=== PATIENT | female | born 1935 | race Caucasian/White ===

== ENCOUNTER 2017-10-14 19:15 | Inpatient (IN) | payer MEDICARE ==
[2017-10-14 19:45] LABS: #Basophils 0.1 thou/uL (0.0-0.2); #Eosinphils 0.1 thou/uL (0.0-0.7); #Lymphocytes 1.1 thou/uL (1.20-3.40); #Monocytes 0.8 thou/uL (0.11-0.59); #Neutrophils 12.4 thou/uL (1.40-6.50); %Basophils 0.5 % (0.0-1.0); %Lymphocytes 7.8 % (21.0-51.0); %Monocytes 5.6 % (0.0-10.0); %Neutrophils 85.1 % (42.0-75.0); Hemoglobin 14.8 g/dL (12.0-16.0); Mean Corpuscular HGB CONC 34.2 g/dL (32.0-36.0); Mean Corpuscular Hemoglobin 33.3 pg (27.0-31.0); Mean Corpuscular Volume 97.5 fl (81.0-99.0); Mean Platelet Volume 8.7 fL (7.4-10.4); Platelet Count 165 thou/uL (130-400); RBC Distribution Width 11.2 % (11.5-14.5); Red Blood Cell (RBC) Count 4.44 mill/uL (4.20-5.40); White Blood Cell (WBC) Count 14.6 thou/uL (4.8-10.8)
[2017-10-14] MEDS ORDERED: Labetalol HCl 100 MG/20 ML VIAL ONE (19:49)
[2017-10-14 19:51] LABS: INR-International Normal Ratio 1.1; PTT 23.1 SEC (22.9-36.1); Prothrombin Time 14.1 SEC (12.0-14.7)
[2017-10-14 20:00] LABS: ALT (SGPT) 15 U/L (8-55); AST (SGOT) 22 U/L (5-34); Albumin 4.2 g/dL (3.4-4.8); Alkaline Phosphatase 86 U/L (40-150); Anion Gap 15 mmol/L (10-20); BUN (Urea Nitrogen) 21 mg/dL (9.8-20.1); Bilirubin, Total 0.5 mg/dL (0.2-1.2); Calc. Creatinine Clearance 0 mL/min (70-130); Carbon Dioxide 23 mmol/L (23-31); Chloride 104 mmol/L (98-107); Estimated GFR-MDRD 77; Globulin 3.3 g/dL (2.4-3.5); Glucose 162 mg/dL (83-110); Protein, Total 7.5 g/dL (6.0-8.3); Sodium 139 mmol/L (136-145)
[2017-10-14 20:03] LABS: CKMB 0.7 ng/mL (0-6.6); Troponin I Less than 0.010 ng/mL (< 0.028)
[2017-10-14] MEDS ORDERED: niCARdipine 20MG In NaCl 20 MG/200 ML BAG IVPB PRN (20:03)
[2017-10-14 20:07] LABS: Bilirubin Negative (Negative); Blood, Urine Trace (Negative); Clarity CLEAR (Clear); Glucose, Urine (Dipstick) 100 mg/dL (Negative); Leukocyte Negative (Negative); Nitrite Negative (Negative); Protein, Urine (Dipstick) 30 mg/dL (Neg-Trace); Specific Gravity, Urine 1.012 (1.002-1.036); Urobilinogen 0.2 mg/dL (0.2-1.0); pH, Urine 7.5 (5.0-9.0)
[2017-10-14] MEDS ORDERED: Labetalol HCl 100 MG/20 ML VIAL SLOW IVP PRN (20:07)
[2017-10-14] MEDS ORDERED: Ondansetron HCl/PF 4 MG/2 ML Vial IVP PRN (20:07)
[2017-10-14 20:10] LABS: Bacteria/HPF Rare-Few HPF (None Seen); Hyaline Casts/LPF 0-3 HYALINE CAST LPF (0-3 Hyaline); Pathc Cast-AUWi Flag 0.14 (0-2.49); Squamous Epithelial 0-3 HPF (0-3); WBC/HPF 0-3 HPF (0-3)
[2017-10-14 20:11] LABS: Actual Bicarbonate (HCO3a) 22.7 mEq/L (22-26); Base Excess (BEa) -0.6 mEq/L (0 (+/-) 2.5); CO2 Tension 33.4 mmHg (35.0-45.0); Calcium, Ionized 1.1 mmol/L (1.12-1.30); pH, Arterial 7.45 (7.35-7.45)
[2017-10-14] MEDS ORDERED: Acetaminophen 650 MG in Premix Bag 1 BAG IVPB PRN (20:11)
[2017-10-14] MEDS ORDERED: niCARdipine 20MG In NaCl 20 MG/200 ML BAG ONE (20:11)
[2017-10-14 20:12] LABS: Analyzer IN Cardio ER; Puncture Site LBA
[2017-10-14] MEDS ORDERED: Lorazepam 2 MG/ML VIAL SLOW IVP PRN (20:13)
[2017-10-14] MEDS ORDERED: Morphine 4 MG/ML VIAL SLOW IVP PRN (20:13)
[2017-10-14] MEDS ORDERED: Fentanyl BOLUS 250 ML IVPB PRN (20:13)
[2017-10-14] MEDS ORDERED: Propofol BOLUS 1,000 MG/100 ML VIAL IV PRN (20:13)
[2017-10-14] MEDS ORDERED: Propofol 1,000 MG/100 ML VIAL IV PRN (20:13)
[2017-10-14] MEDS ORDERED: fentaNYL Citrate/PF 2,000 MCG in Sodium Chloride 0.9% 60 ML IV SCH (20:13)
[2017-10-14] MEDS ORDERED: DISCONTINUE PREVIOUS NARCOTIC PAIN MEDICATIONS AND BENZODIAZEPINES FS SCH (20:13)
[2017-10-14] MEDS ORDERED: Ventilator Sedation Protocol 1 EACH FS SCH (20:15)
--- NOTE | 2017-10-14 20:33 | CT ---
CT OF THE BRAIN WITHOUT CONTRAST: Comparison: None. Technique: Multiple contiguous axial images were obtained in a CT of the brain without contrast. FINDINGS: There is a large parenchymal hemorrhage involving the left frontal lobe. There is also a parenchymal hemorrhage involving the right parietal lobe and right frontal lobe. There are scattered areas of sub arachnoid hemorrhage. There is midline shift to the right of approximately 6-7 mm. No dominant hernia tion is seen. No intraventricular hemorrhage or hydrocephalus are seen. IMPRESSION: 1. Bilateral parenchymal hemorrhages as above. 2. Scattered subarachnoid hemorrhage. Dr. Weinstein notified of the findings at 7:26 on 10-14-17. POS: [facility]
--- NOTE | 2017-10-14 20:35 | RAD ---
SINGLE VIEW OF THE CHEST: Comparison: None. History: Altered mental status with intracranial hemorrhage. FINDINGS: Single view of the chest shows a normal sized cardiomediastinal silhouette. There is an endotracheal tube with its tip between the clavicles. There is no evidence of consolidation, mass, or pleural effu roberto. Surgical clips are seen in the left axilla. IMPRESSION: 1. No evidence of acute cardiopulmonary disease. 2. Appropriate position of endotracheal tube. POS: [facility]
[2017-10-14] MEDS ORDERED: Famotidine/PF 20 mg/2ml Vial SLOW IVP SCH (21:00)
--- NOTE | 2017-10-14 21:49 | HP ---
HISTORY OF PRESENT ILLNESS: The patient is an 81-year-old female known to us for recent intracranial hemorrhage on 09/19/2017, seen at [facility] at that time. Past medical history also of a hypertension , who presented to the Emergency Department the night after she became unresponsive at the halfway. On 09/19/2017, the patient was seen in the ER at [facility] for acute onset headache and confusion. CT at that time was notable for large right frontal intracranial hemorrhage. The patient was evaluated with MRI of the brain with and without contrast as well as MRA of head and neck, which were negative for any underlying lesion or vascular abnormality. At that time, it was felt her bleed was likely related to amyloid angiopathy. She improved during her previous admission and was discharged to detention facility, where she has been until today. [facility] reports that at approximately 6:30 p.m. tonight, the patient slumped over in a chair and became unresponsive. By the time EMS arrived on the scene, the patient was agonal breathing and required intubation for airway protection. She received etomidate and rocuronium shortly prior to my arrival. I am seeing the patient at the bedside in trauma room [address] [facility] head was done on arrival, which shows new large left-sided frontal intracranial hemorrhage with midline shift. The patient is currently intubated. She does not have any active sedation and spent approximately 45 minutes and she was given rocuronium or etomidate. Her pupils are equal and reactive. She does not have a corneal reflex. She does not have a gag reflex. She is not overbreathing the vent. She does withdrawal to stimulation. PAST MEDICAL HISTORY: Intracranial hemorrhage on 09/19/2017, breast cancer, prior CVA, and hypertension. PAST SURGICAL HISTORY: Lumpectomy, cataract surgery, and hemorrhoid surgery. ALLERGIES: The patient is allergic to SULFA and BAMBERMYCIN. CURRENT MEDICATIONS: Amlodipine 5 mg tablet 1 tablet p.o. daily, atenolol 100 mg tablet 1 tablet p.o. daily, cetirizine 10 mg 1 tablet p.o. daily, Keppra 500 mg tablet 1 tablet p.o. b.i.d., Tylenol 325 mg tablet p.r.n. REVIEW OF SYSTEMS: Unobtainable secondary to the patient's current condition. PHYSICAL EXAMINATION: GENERAL: The patient is currently intubated. Sedation was given etomidate and rocuronium approximately 45 minutes prior to my exam. NEUROLOGIC: Her pupils are equal and reactive to light. She does not have a corneal reflex. She does not have a gag reflex. She is not overbreathing the ventilator. She does move all fours to stimulation. GCS is currently 5, [id number]. ASSESSMENT AND PLAN: This is an 81-year-old female, who is known to us for recent right frontal intracranial hemorrhage on 09/19/2017. At that time, she was worked up with MRI of the brain with and without contrast and MRA of the head and neck with no underlying mass lesion or vascular abnormality. It was felt that her bleeding was likely related to amyloid angiopathy. She returns tonight with a new left frontal intracranial hemorrhage, likely the same etiology. Although, her blood pressure was significantly elevated with systolic greater than 200 on arrival. We started Cardene drip with a goal systolic blood pressure less than 140. The patient will be admitted to the ICU for q.1 neuro checks close monitoring. Head of bed will be elevated to 30 degrees. She is not on anticoagulants. We will continue her Keppra 500 mg IV b.i.d. I will consult the Hospitalist Service for assistance in medical management as well as Critical Care for assistance in ventilator management. I have discussed this plan with Dr. Guajardo, who is in agreement. He will meet with the family at 6:45 in the morning to discuss this very signficant ICH that is likely not survivable. Please reach out to Neurosurgery Service for additional questions or concerns. JOSE
[2017-10-14 21:55] VITALS: BMI 18.8
[2017-10-14] MEDS ORDERED: Metoprolol Tartrate 5 MG/5 ML VIAL IVP SCH (22:45)
[2017-10-14] MEDS: Sodium Chloride 0.9% 1,000 ML IV SCH (23:13)
[2017-10-14] MEDS ORDERED: Famotidine 40 MG/4 ML VIAL SLOW IVP SCH (23:15)
[2017-10-15] MEDS ORDERED: Metoprolol Tartrate 5 MG/5 ML VIAL IVP PRN (02:58)
[2017-10-15 05:01] LABS: Anion Gap 20 mmol/L (10-20); BUN (Urea Nitrogen) 14 mg/dL (9.8-20.1); Calc. Creatinine Clearance 40 mL/min (70-130); Calcium 9.9 mg/dL (7.8-10.44); Carbon Dioxide 20 mmol/L (23-31); Chloride 116 mmol/L (98-107); Estimated GFR-MDRD 66; Glucose 177 mg/dL (83-110); Magnesium 2.4 mg/dL (1.6-2.6); Potassium 3.7 mmol/L (3.5-5.1); Sodium 152 mmol/L (136-145)
[2017-10-15 05:08] LABS: Band 14 % (5-11); Lymphocytes 6 % (21-51); MDiff Complete? YES; Mean Corpuscular Hemoglobin 31.3 pg (27.0-31.0); Mean Corpuscular Volume 97.7 fl (81.0-99.0); Mean Platelet Volume 8.7 fL (7.4-10.4); Monocytes 2 % (0-10); Neutrophil 78 % (42-75); Platelet Count 190 thou/uL (130-400); RBC Distribution Width 11.7 % (11.5-14.5); Red Blood Cell (RBC) Count 5.12 mill/uL (4.20-5.40); White Blood Cell (WBC) Count 22.2 thou/uL (4.8-10.8)
--- NOTE | 2017-10-15 07:27 | CON ---
DATE OF CONSULTATION: 10/15/2017 REQUESTING: Dr. Rishi Guajardo. TIME OF CONSULTATION: 023 REASON FOR CONSULTATION: Intracranial hemorrhage, atrial fibrillation with RVR for medical managemen t. HISTORY OF PRESENT ILLNESS: Ms. Macdonald is an 81-year-old white female with a history of a recent larg e right frontal intracranial hemorrhage and deficits, who was hospitalized back at [facility] out 3 weeks ago. Per report, as the patient is currently obtunded, patient was discharged to rehab. Patient was seen at [facility] for acute-onset headache and confusion. Brain MRI showed negative for underlying lesions or abnormalities. The thought is likely of amyloid angiopathy. Discharged to [facility] facility, which has been until the day of admission. Approximately 1830 the night of admission, she slumped over the chair, became unresponsive. EMS was activated, and arrived on the scene, patient with agonal breathing and drooling and subsequen tly vomited. She was intubated for airway protection. She received etomidate and rocuronium during this. The patient was subsequently transferred to [place] [facility], CT scan of the head was done on arrival shows a new large left-sided frontal intracranial hemorrhage in midline shift. The p atient has been remained off sedation and per the admit note from the Neurosurgery team, the patient had equal and reactive pupils. She did not have any corneal reflex, but did not have a gag reflex, w as not wearing the vent. The patient was admitted by the Neurosurgery team to the ICU with a very grave prognosis, They are p jovani to get a repeat CT scan of the head. Pulmonary and Internal Medicine were consulted for rout ine medical management, however, after arrival to the ICU, the patient developed atrial fibrillation with rapid ventricular response with heart rates in the 120s to 140s. The ER was initially contacted. We have not been called about the consultation yet, I gave interim o rders for IV Cardizem, due to the non-availability of Cardizem and a short supply, I was subsequently called by the floor for clarification. At that time, I did give an order for 5 mg of IV Lopressor, which she did get. Her heart rate droppe d down to 80s-90s, it remained sustained until as I am seeing her now, starting to creep back up. The patient is off sedation, it has been on hours since she received rocuronium and etomidate and has to be well out of her system. She has no gag reflex. Her pupils are 5 mm and unreactive, she does have a reflexive movement from her lower extremities to pain, but none from upper extremities and she is completely flaccid. PAST MEDICAL HISTORY: 1. Intracranial hemorrhage on 09/19/2017 on the right frontal region. 2. Breast cancer. 3. Seasonal allergies. 4. Hypertension. 5. Cerebrovascular disease. 6. History of stroke in the past. PAST SURGICAL HISTORY: 1. Includes bilateral cataract repair. 2. Right breast lumpectomy. 3. Hemorrhoid surgery. 4. Left elbow surgery and a colonoscopy. HOME MEDICATIONS: 1. Amlodipine 2.5 mg daily. 2. Keppra 500 mg b.i.d. 3. Atenolol 25 mg daily. 4. Zyrtec 10 mg daily. 5. Tylenol as needed. ALLERGIES: SULFA AND VIBRAMYCIN, I am not sure what that is. FAMILY HISTORY: Not obtainable. SOCIAL HISTORY: Per report is negative x3. REVIEW OF SYSTEMS: Ten-point review of systems cannot be obtained secondary to patient's unresponsiv eness. PHYSICAL EXAMINATION: VITAL SIGNS: Temperature 98.3, pulse 71, blood pressure on arrival to the ER was 217/116 respiratory 14, saturating 94% on bag valve mask. Currently, her heart rate on arrival to the floor in the ICU was in the 120s, now down to the 90s-100s. Blood pressure remained in the 130s. She is off the Card kathleen drip. GENERAL: She is unsedated. She is unresponsive. She is orally intubated on the ventilator. HEENT: Pupils are 5 mm and unreactive. Mucous membranes are moist. Endotracheal tube is in place. NECK: Supple. There is no lymphadenopathy, no carotid upstrokes. I do not appreciate bruits. CHEST: Lungs are clear. She is not overbreathing the ventilator. She has no wheezes, rales, or rho nchi. No prolonged expiratory phase. CARDIOVASCULAR: She has irregularly irregular and tachycardic. She has normal S1 and S2. She had f aint, 2/6 systolic ejection murmur, but no diastolic murmurs. ABDOMEN: Scaphoid, nontender, nondistended. She has good bowel sounds. There is no rigidity, no di stention. EXTREMITIES: No cyanosis or clubbing. She has got trace pedal edema. There is 1+ dorsalis pedis an d posterior tibial and radial artery pulses bilaterally. SKIN: Warm, moist, and well perfused. There is no other rashes or lesions. MUSCULOSKELETAL: Normal to inspection. No inflamed joints. No palpable effusions. NEUROLOGIC: She is unable to comply. Pupils are not reactive. There is no gag reflex. Her reflex arc to the lower extremity does appear to be intact. There is no decerebrate or decorticate posturin g. LABORATORY DATA: Sodium 139, potassium 3.0, chloride 104, bicarbonate 23, BUN 21, creatinine 0.72, g lucose 162, and calcium 9.0. Liver function completely within normal limits. CBC has a white count of 14.6, hemoglobin is 14.8, hematocrit of 43.3, and platelet count 165,000. S he has 85% granulocytes. INR is 1.1. CK-MB of 0.7, troponin I is less than 0.010 and urinalysis clean. RADIOGRAPHIC STUDIES AND IMAGING: Chest x-ray shows no evidence of acute cardiopulmonary disease in appropriate position of endotracheal tube. Brain CT done in the emergency department at the time of arrival showed bilateral parenchymal hemorrhages and scattered subarachnoid hemorrhage, particularly mentioned a large parenchymal hemorrhage involving their left frontal lobe and parenchymal hemorrhage involving the right parietal lobe and right frontal lobe, scattered areas of subarachnoid hemorrhage . There is a 6-7 mm midline shift to the right. No hydrocephalus intraventricular hemorrhage were s een. ASSESSMENT AND PLAN: 1. Recurrent intracranial hemorrhaging, new left-sided, subacute right. The patient appears to be n eurologically devastated. The patient is still FULL CODE. She is currently on the ventilator. Neur osurgery plans to repeat the CT scan in the morning. I had a long discussion with the family. At th is time, she has no pupillary reflex, no gag reflex, and is off sedation with no higher functioning. Her likelihood of recovery is dismal. 2. Atrial fibrillation with rapid ventricular response: I do not know of any history of atrial fibr illation. At this time, she responded well to rate control with Lopressor. I will continue on this now. She is not taking it by mouth obviously. We will use Lopressor 5 mg IV q.2 hours p.r.n. heart rate greater than 100. 3. History of breast cancer, stable. 4. Hypertension: Blood pressures in the 130s systolic, off Cardene. Cardene ordered as per Neurosu osvaldo to keep her blood pressure below 170. Thank you very much for this consult. I will follow along with you.
[2017-10-15] MEDS ORDERED: Famotidine 40 MG/4 ML VIAL SLOW IVP SCH (09:00)
--- NOTE | 2017-10-15 09:20 | CT ---
PRELIMINARY REPORT/[facility]/EMERGENTY AFTER-HOURS PROCEDURE Addendum created by Joshua Mota MD on 10/15/2017 4:01 AM Central Time ([place] & [place]) THIS REPORT CONTAINS FINDINGS THAT MAY BE CRITICAL TO PATIENT CARE. The findings were verbally commun icated via telephone conference with JACKIE RUGGIERO at 4:01 AM CDT on 10/15/2017. The findings were ac knowledged and understood. Initial Report created on 10/15/2017 3:51 AM Central Time ([place] & [place]) CT Head Without Intravenous Contrast CLINICAL HISTORY: 81 years old, female; Condition or disease; Other: F/u intracerebral hemorrhagic stroke TECHNIQUE: Axial computed tomography images of the head/brain without intravenous contrast. COMPARISON: CT Brain WO Con 2017-10-14 19:22 FINDINGS: Interval increased density in the right parietal hemorrhage. Left sided hemorrhage is measuring up to 5 cm at the frontoparietal convexity and extending into the interhemispheric fissure are demonstrate d. There is worsening edema in the left cerebral hemisphere with increased midline shift to the right of 1.1 cm in worsening hydrocephalus. Intraventricular hemorrhage flair and occipital horns noted. T he suprasellar cistern is effaced. The basal cisterns are patent. There is no tonsillar herniation Subarachnoid hemorrhage bilaterally is grossly stable The calvarium is intact. The paranasal sinuses and mastoid cavities are grossly clear IMPRESSION: Extensive worsening edema in the left cerebral hemisphere with worsening midline shift to the right h and hydrocephalus. Cisternal effacement as described. Increased density in the right parietal hemorrh age suggesting possible rehemorrhage Thank you for allowing us to participate in the care of your patient. Dictated and Authenticated by: Joshua Mota MD 10/15/2017 3:51 AM Central Time ([place] & [place]) FINAL REPORT CT HEAD NONCONTRAST: DATE: 10/15/17. TIME: Performed on an emergency basis at 0335 hours. HISTORY: Intracranial hemorrhage. Followup. COMPARISON: 10/14/17. FINDINGS: Findings agree with the preliminary report from [facility]. A large amount of intracranial he morrhage, predominantly subarachnoid, is again demonstrated. Cerebral edema and rightward shift of t he septum pellucidum has increased. POS: OFF
[2017-10-15] MEDS: Sodium Chloride 0.9% 1,000 ML IV SCH (09:25)
[2017-10-15 10:39] VITALS: BP 184/80
[2017-10-15 12:12] VITALS: TEMP 100
[2017-10-15] MEDS ORDERED: Morphine 4 MG/ML VIAL SLOW IVP PRN (12:21)
--- NOTE | 2017-10-15 14:54 | PQF ---
I never saw this patient as they prior to rounding. We were consultants on the case. CLINICAL DOCUMENTATION IMPROVEMENT CLARIFICATION FORM: ICD-10 Updated PLEASE DO AN ADDENDUM TO THE PROGRESS NOTE WITH ANY DOCUMENTATION UPDATES OR ADDITIONS AND CARRY THROUGH TO DC SUMMARY. THANK YOU. DATE: 10/15/17 ATTN: DR. BARKLEY Please exercise your independent, professional judgment in responding to the clarification form. Clinical indicators are provided on the bottom of this form for your review Please check appropriate box(s): [ ] Acute Respiratory Failure: [ ] with Hypoxia[ ] with Hypercapnia [ ] Acute On Chronic Respiratory Failure: [ ] with Hypoxia [ ] with Hypercapnia [ ] Acute Respiratory Failure due to: (etiology) [ ] Acute Respiratory Insufficiency following (if applicable): [ ] trauma [ ] surgery [ ] Chronic Respiratory Failure only [ ] with Hypoxia [ ] with Hypercapnia [ ] Hypoxia [ ] Other diagnosis [ ] Unable to determine In addition, please specify: Present on Admission (POA): [ ] Yes [ ] No [ ] Unable to determine For continuity of documentation, please document condition throughout progress notes and discharge summary. Thank You. CLINICAL INDICATORS - SIGNS / SYMPTOMS / LABS ER NOTE: "RESPIRATORY ARREST" ABG PCO2 33.4 ABG PO2 106 RISKS: PATIENT NONRESPONSIVE INTRACRANIAL HEMORRHAGE TREATMENT: INTUBATION WITH MECHANICAL VENT CRITICAL CARE MONITORING ABGS (This form is maintained as a part of the permanent medical record) 2014 [employer]. All Rights Reserved [email or web address] Office: [phone] [facility] PS[facility]CH[facility]ATR[facility] CENTERLigia
--- NOTE | 2017-10-15 15:10 | PQF ---
I never saw this patient as she before my rounding on them. We were also consultants on the case. CLINICAL DOCUMENTATION IMPROVEMENT CLARIFICATION FORM: ICD-10 Updated PLEASE DO AN ADDENDUM TO THE PROGRESS NOTE WITH ANY DOCUMENTATION UPDATES OR ADDITIONS AND CARRY THROUGH TO DC SUMMARY. THANK YOU. DATE: 10/15/17 ATTN: DR. BARKLEY Please exercise your independent, professional judgment in responding to the clarification form. Clinical indicators are provided on the bottom of this form for your review Please check appropriate box(s): [ ] Cerebral edema / Vasogenic edema [ ] Compression of brain Due to: [ ] Intracranial tumor [ ] Intracranial hematoma [ ] Acute cerebral infarction [ ] Traumatic brain injury [ ] Acute hypoxic ischemic encephalopathy [ ] Obstructive hydrocephalus [ ] Other diagnosis [ ] Unable to determine In addition, please specify: Present on Admission (POA): [ ] Yes [ ] No [ ] Unable to determine For continuity of documentation, please document condition throughout progress notes and discharge summary. Thank You. CLINICAL INDICATORS - SIGNS / SYMPTOMS / LABS ER NOTE: "INTRACRANIAL BLEED WITH MIDLINE SHIFT" RISKS: AMYLOID ANGIOPATHY LEFT FRONTAL INTRACRANIAL HEMORRHAGE TREATMENT: BRAIN CT CRITICAL CARE MONITORING NEURO CHECKS LOY FOX (ER-PRESENT) VALDEMAR (10/14-PRESENT) ON VENTILATOR (This form is maintained as a part of the permanent medical record) 2014 [employer]. All Rights Reserved [email or web address] Office: [phone] MTDD
--- NOTE | 2017-10-15 17:14 | CON ---
DATE OF CONSULTATION: 10/15/2017 CONSULTING PHYSICIAN: Dr. Guajardo. REASON FOR CONSULTATION: Ventilator management. HISTORY OF PRESENT ILLNESS: The patient is an 81-year-old female who has been hospitalized with obtundation secondary to a left frontal hemorrhage with herniation. She was intubated for airway protection. According to nursing staff, family is probably going to withdraw care later today. The information I have is taken from reading hospital notes. The patient is unable to give history on her own because she is obtunded. PAST MEDICAL HISTORY: 1. She had a recent right frontal intracranial hemorrhage which required hospitalization at [facility] in [place]. 2. Breast cancer. 3. Hypertension. 4. Cerebrovascular disease. PAST SURGICAL HISTORY: 1. Cataract repair. 2. Right breast lumpectomy. 3. Hemorrhoidectomy. 4. Left elbow surgery. 5. Colonoscopy. MEDICATIONS PRIOR TO ADMISSION: Amlodipine, Keppra, atenolol, Zyrtec, Tylenol. ALLERGIES: SULFA and VIBRAMYCIN. FAMILY MEDICAL HISTORY: Unremarkable. SOCIAL HISTORY: Apparently does not smoke, does not consume alcohol. REVIEW OF SYSTEMS: Cannot be obtained because the patient is unresponsive on mechanical ventilation. PHYSICAL EXAMINATION: VITAL SIGNS: Temperature is 98.8, pulse 70, blood pressure 167/73, O2 sat 99%, respiratory rate 16. GENERAL: The patient is obtunded on mechanical ventilation requiring no sedation. HEENT: Pupils are 6 mm, nonreactive to light. She does have a gag reflex. NECK: Without adenopathy or JVD. LUNGS: Clear. CARDIAC: S1, S2 regular, without murmur. ABDOMEN: Soft, nontender, nondistended. EXTREMITIES: No clubbing, cyanosis, or edema. NEUROLOGIC: She will withdraw to pain in legs. LABORATORY DATA: White blood cell count 22.2, hematocrit 50, and platelet count 190. INR 1.1, pH 7.45, pCO2 of 33, pO2 16 and SIMV rate 14, tidal volume 400, PEEP 5, pressure support 10, FiO2 50%. Sodium 152, potassium 3.7, chloride 116, CO2 20, BUN 14, creatinine 0.8, and glucose 177. IMAGING DATA: Chest x-ray reviewed personally by myself demonstrates an endotracheal tube that is about 4 cm above the darion. She has scattered interstitial changes, slight hyperinflation. She has anabella in her left axilla. ASSESSMENT: Intracranial hemorrhage with significant neurologic deficit which is not thought to be survivable. PLAN: Supportive care until family arrives. I do not seem anything to add at this time. 70 min time was spent on this consult. Of that time, >50% was spent with the patient and/or on the patients unit. JOSE
[2017-10-16] MEDS ORDERED: Famotidine 40 MG/4 ML VIAL SLOW IVP SCH (09:00)
--- NOTE | 2017-10-21 08:36 | EKG ---
Test Reason : Blood Pressure : / mmHG Vent. Rate : 134 BPM Atrial Rate : 156 BPM P-R Int : 000 ms QRS Dur : 078 ms QT Int : 328 ms P-R-T Axes : 000 -59 059 degrees QTc Int : 489 ms Atrial fibrillation with rapid ventricular response Left anterior fascicular block Anteroseptal infarct , age undetermined Marked ST abnormality, possible inferior subendocardial injury Abnormal ECG Confirmed by RICKY BAKER, CARLITO ([id number]) on 10/21/2017 8:36:17 AM Referred By: Amber FRANCISCO Confirmed By:CARLITO GARCÍA MD
--- NOTE | 2017-10-29 13:25 | DIS ---
SUMMARY Neurosurgery Service ATTENDING PHYSICIAN: Rishi Guajardo M.D. DATE OF ADMISSION: 10/14/2017 DATE OF EXPIRATION: 10/15/2017 SUMMARY HOSPITAL COURSE: Patient is an 81-year-old female who is well known to us for a recent int racranial hemorrhage on 09/19/2017, worked at that time and found to have amyloid angiopathy who retu rns to the ER on 10/14/2017 from the detention after she became unresponsive. CT at that time was notable for a large right frontal intracranial hemorrhage with midline shift and surrounding edema. Repeat CT in the morning showed significant worsening of this mid mcintosh which was incompatible with s urvival. The patient had been intubated in the emergency department and was being mechanically venti lated in the ICU. Dr. Guajardo met with the family, discussed the grave nature of her situation. Th ey elected to remove supportive care, the following day. She shortly after that time. Tesha faustin reach out to Neurosurgery Service for additional questions or concerns.
== END 2017-10-15 13:51 | disposition expired | DRG 64 ==
LOC: ERS 19:15 → CCU 20:07
PROVIDERS: ADMIT Neurological Surgery; ATTEND Neurological Surgery
PROC: 5A1935Z Respiratory Ventilation, Less than 24 Consecutive Hours (ICD-10-PCS; principal; 2017-10-14)
DX: I60.8 Other nontraumatic subarachnoid hemorrhage (principal); G93.5 Compression of brain; E85.4 Organ-limited amyloidosis; I48.91 Unspecified atrial fibrillation; I10 Essential (primary) hypertension; Z51.5 Encounter for palliative care; Z86.73 Personal history of transient ischemic attack (TIA), and cerebral infarction without residual deficits; Z85.3 Personal history of malignant neoplasm of breast; Z88.1 Allergy status to other antibiotic agents; Z88.2 Allergy status to sulfonamides; R40.2433 Glasgow coma scale score 3-8, at hospital admission; I68.0 Cerebral amyloid angiopathy; Z90.11 Acquired absence of right breast and nipple; Z66 Do not resuscitate; R09.2 Respiratory arrest
CPT/HCPCS: 36415; 36416; 51702; 70450; 71045; 80048; 80053; 81003; 81015; 82553; 82805; 83735; 84484; 85025; 85610; 85730; 93005; 93010; 94002; 94003; 96365; 96374; J1953